=== PATIENT | male | born 1985 | race Caucasian/White ===

== ENCOUNTER → 2017-10-16 | Outpatient (CLI) | payer OTHER ==
[~2017-10-16] MED LIST: IBUP-103 PO
--- NOTE | 2017-10-16 08:56 | DIAGNOSTIC IMAGING REPORT ---
RIGHT SHOULDER 3 VIEWS HISTORY: DISLOCATION OF OTHER PARTS OF R SHOULDER COMPARISON: None. FINDINGS: Abnormal lucency and irregularity at the anterior inferior glenoid consistent with a fracture. This likely represents a bony Bankart lesion. Small fragments are distracted up to 5 mm. Slight irregularity at the lateral humeral head suggestive of a Hill-Sachs deformity. No dislocation. The right clavicle is intact. IMPRESSION: 1. Hill-Sachs deformity with a bony Bankart lesion as described above. 2. No dislocation at this time. Electronically signed by: Christiano Quinteros M.D. 10/16/2017 8:55 AM Dictated Date/Time: 10/16/2017 8:50 AM
== END | disposition home or self-care (01) ==
LOC: C.RADBC 08:34
PROVIDERS: ATTEND Family Medicine
DX: S43.004A Unspecified dislocation of right shoulder joint, initial encounter (principal); W19.XXXA Unspecified fall, initial encounter

== ENCOUNTER → 2017-10-19 | Outpatient (CLI) | payer OTHER ==
--- NOTE | 2017-10-19 09:40 | DIAGNOSTIC IMAGING REPORT ---
RIGHT SHOULDER CT CT DOSE: 486.64 mGycm HISTORY: Right shoulder fracture. TECHNIQUE: Multiaxial CT images of the right shoulder were performed and reformatted in the sagittal and coronal plane without the use of contrast. A dose lowering technique was utilized adhering to the principles of ALARA. COMPARISON: Right shoulder 10/16/2017. FINDINGS: There is a Hill-Sachs impaction fracture demonstrating mild depression. The fracture measures approximately 2 cm in size. There is associated bony Bankart lesion with a comminuted and mildly displaced fracture at the anterior inferior glenoid. This fracture demonstrates up to 4 mm of anterior displacement and 1 mm of depression. No dislocation. The right clavicle is intact. There is associated right glenohumeral joint effusion. IMPRESSION: 1. Redemonstration of the Hill-Sachs impaction fracture with an associated bony Bankart lesion as described above. 2. No dislocation. 3. Glenohumeral joint effusion. Electronically signed by: Christiano Quinteros M.D. 10/19/2017 9:38 AM Dictated Date/Time: 10/19/2017 9:34 AM
== END | disposition home or self-care (01) ==
LOC: C.CTS 08:57
PROVIDERS: ATTEND Family Medicine
DX: S42.91XA Fracture of right shoulder girdle, part unspecified, initial encounter for closed fracture (principal); X58.XXXA Exposure to other specified factors, initial encounter